=== PATIENT | female | born 2000 | race African-American/Black ===

== ENCOUNTER → 2020-10-13 | Outpatient (CLI) | payer OTHER ==
[~2020-10-13] MED LIST: NITR100C62 PO
--- NOTE | 2020-10-13 17:11 | RAD ---
EXAM: Obstetrics sonogram. HISTORY: First trimester screening. TECHNIQUE: Sonographic imaging of a gravid uterus was performed. COMPARISON: None. FINDINGS: The uterus measures 10.6 x 8.1 x 8.4 cm. The cervix closed and measures 3 cm in length. The re is an intrauterine gestational sac in normal position and configuration. There is a single p ole with a crown-rump length of 2.33 cm, corresponding with a gestational age of 9 weeks and 0 days. There is a normal heart rate of 145 bpm. There is a hypoechoic region along the posterior super ior gestational sac measuring 2.3 x 1.8 x 1.1 cm, the appearance of which favors a small subchorionic hematoma. There is a normal-appearing yolk sac. The right ovary is obscured. The left ovary is brittnee l in size and demonstrates normal blood flow. There is no pelvic free fluid. IMPRESSION: 1. Single intrauterine fetus with normal heart rate and gestational age of 9 weeks and 0 days based o n ultrasound measurements. 2. Suspected subchronic hematoma measuring 2.3 cm. Attention at the time of follow-up is recommended. Electronically signed by: Ailin Haynes MD (10/13/2020 5:09 PM) [facility]
== END ==
LOC: US 16:17
PROVIDERS: ATTEND Family Medicine
DX: Z34.91 Encounter for supervision of normal pregnancy, unspecified, first trimester (principal); Z3A.09 9 weeks gestation of pregnancy
CPT/HCPCS: 76801

== ENCOUNTER → 2020-12-06 | Outpatient (CLI) | payer OTHER ==
--- NOTE | 2020-12-06 17:24 | RAD ---
EXAM: Obstetrics sonogram. HISTORY: Absent heart tone. TECHNIQUE: Sonographic imaging of the pelvis was performed. COMPARISON: 10/13/2020. FINDINGS: There is a single intrauterine fetus in cephalic presentation with a normal heart rate of 1 53 bpm. There is a grade 1 anterior placenta without evidence of placenta previa. The cervix is close d and measures 4.1 cm in length. The amniotic fluid index is grossly normal. The biparietal diameter is 3.72 cm, corresponding with 17 weeks and 3 days and the 73rd percentile. T he head circumference is 13.48 cm, corresponding with 17 weeks and 0 days and the 45th percentile. Th e abdominal circumference is 11.23 cm, corresponding with 17 weeks and 0 days and the 57th percentile . The femoral length is 2.29 cm, corresponding with 16 weeks and 6 days and the 46th percentile. The estimated gestational age patient combined ultrasound measurements is 17 weeks and 1 day and the estimated weight is 176 g. The estimated due date is 05/15/2021. There is a normal head circumfe rence to abdominal sequential ratio of 1.2. IMPRESSION: 1. Single intrauterine fetus in cephalic presentation with a normal heart rate and gestational age ba sed on ultrasound measurements of 17 weeks and 1 day. The gestational age based on LMP is 16 weeks an d 6 days. 2. Note is made that the anatomy is not formally assessed on this exam. A anatomy survey can be performed at approximately 20 weeks gestation. Electronically signed by: Ailin Haynes MD (12/06/2020 5:21 PM) [id number]
== END ==
LOC: US 16:03
PROVIDERS: ATTEND Family Medicine
DX: O02.1 Missed abortion (principal); Z3A.20 20 weeks gestation of pregnancy
CPT/HCPCS: 76815

== ENCOUNTER → 2021-01-04 | Outpatient (CLI) | payer OTHER ==
--- NOTE | 2021-01-04 11:21 | RAD ---
EXAM: OB ULTRASOUND, > 14 WEEKS HISTORY: Decreased movements. COMPARISON: 12/06/2020 TECHNIQUE: Multiple grayscale images, color Doppler, and M-mode images of the uterus are obtained. FINDINGS: There is a single intrauterine gestation in cephalic presentation. The placenta is anterior in locati on without evidence of placenta previa. The amount of amniotic fluid appears appropriate. Amniotic f luid index is 11.1 cm. Cervical length is 4.23 cm. Biometrical data: BPD = 4.88 cm for 20 weeks 5 days. HC = 18.88 cm for 21 weeks 1 days. AC = 16.43 cm for 21 weeks 3 days. FL = 3.57 cm for 21 weeks 1 days. HC/AC ratio = 1.15. Overall, the estimated sonographic gestational age is 21 weeks and 1 day for an estimated date of [place] of 05/16/2021. The estimated date of delivery provided by the last menstrual period is 05/17/2021 . Estimated weight is 411 grams. A 4 chamber heart is identified with positive cardiac activity. The estimated heart rate is 145 beats per minute. Bilateral upper and lower extremities are identified. There is a three-vessel cord with cord insertion visualized. stomach and urinary bladder are identified. Both kidneys are seen. The spine and brain are unremarkable. The facial profile is not well seen due to pr esentation. No obvious anatomic abnormalities are identified. The maternal adnexal regions are unremarkable. IMPRESSION: Single intrauterine fetus with normal heart rate and gestational age based on ultrasound measurements of 21 weeks and 1 day. The facial profile is not well seen due to positioning. The remai nder of the anatomy survey is unremarkable. Electronically signed by: Ailin Haynes MD (01/04/2021 11:19 AM) [id number]
== END ==
LOC: US 10:00
PROVIDERS: ATTEND Family Medicine
DX: O36.8120 Decreased fetal movements, second trimester, not applicable or unspecified (principal); Z3A.21 21 weeks gestation of pregnancy
CPT/HCPCS: 76805